=== PATIENT | female | born 1995 | race Asian ===

== ENCOUNTER 2020-12-06 10:50 | Emergency (ER) | payer BC, MEDICAID, OTHER ==
[~2020-12-06] VITALS: Ht 157.5 cm; Wt 52.2 kg
--- NOTE | 2020-12-06 11:02 | NUR ---
PT BIB FAMILY, C/O RLE, R UPPER THIGH SHOOTING PAIN SINCE LAST NIGHT WHILE AT WORK. PT ALSO ENDORSED CHONIC LOWER BACK PAIN, NUMBNESS TO BLE ALSO BOTHERS HER. DENIES ANY RECENT TRUAMA OR INJURY. VSS. AWAITNING MD KHAN.
--- NOTE | 2020-12-06 11:15 | NUR ---
DR GARDINER AT BEDSIDE FOR EVAL.
--- NOTE | 2020-12-06 11:25 | NUR ---
TEXTED DR. WILLIAM FOR MRI APPROVAL.
--- NOTE | 2020-12-06 11:26 | NUR ---
MRI APPROVED, TECH NOTIFIED VIA TEXT.
--- NOTE | 2020-12-06 11:29 | NUR ---
TECH WILL BE IN AT 12.
--- NOTE | 2020-12-06 12:17 | NUR ---
PT TAKEN TO RADIOLOGY FOR LOWER SPINE MRI VIA WHEELCHAIR.
[2020-12-06 13:59] VITALS: BP 133/84
--- NOTE | 2020-12-06 13:59 | NUR ---
Patient discharged to home in stable condition. Written and verbal after care instructions given. Patient verbalizes understanding of instruction.
== END 2020-12-06 14:00 | disposition home or self-care (01) ==
LOC: ER 10:50
DX: M54.5 Low back pain (principal); G89.29 Other chronic pain; R53.1 Weakness
CPT/HCPCS: 72148-TC